=== PATIENT | female | born 1965 | race African-American/Black ===

== ENCOUNTER 2022-08-12 16:48 | Emergency (ER) | payer MEDICAID ==
[~2022-08-12] VITALS: Ht 152.4 cm; Wt 43.7 kg
[~2022-08-12 16:48] MED LIST: ETAN25IN3; ETAN50IN10; HYDR-2595; PREDPOW63; PREDPOW63 PO
[2022-08-12] MEDS ORDERED: ACETAMINOPHEN 325 MG TAB PO ONE (18:30)
[2022-08-12 21:06] LABS: Urine Bacteria NONE SEEN /hpf (None Seen); Urine Blood Negative /uL (Negative); Urine Mucus FEW (None Seen); Urine Specific Gravity 1.022 (1.001-1.035); Urine WBC 1 /hpf (0 - 5)
[2022-08-12] MEDS ORDERED: ACET-1158 PO (21:36)
[2022-08-12 23:25] VITALS: BP 102/69
== END 2022-08-13 08:05 | disposition home or self-care (01) ==
LOC: ER 16:48
DX: J06.9 Acute upper respiratory infection, unspecified (principal); M06.9 Rheumatoid arthritis, unspecified; Z20.822 Contact with and (suspected) exposure to COVID-19; Z88.0 Allergy status to penicillin
CPT/HCPCS: 36415; 73502; 81001; 87426; 87804